=== PATIENT | male | born 1945 | race African-American/Black ===

== ENCOUNTER 2016-10-01 17:30 | Emergency (ER) | payer MEDICARE, MEDICAID ==
[~2016-10-01] VITALS: Ht 180.3 cm; Wt 59.0 kg
[~2016-10-01 17:30] MED LIST: ASPIRIN EC325 MG ORAL; DILANTIN100 MG ORAL; LACTULOSE20 GM/301 ORAL; MILK OF MA400 MG/51 ORAL; MIRTAZAPINE15 MG ORAL; NORCO1 E1 ORAL; NTG1 PATC2 TDERMAL; PROSCAR5 MG ORAL; SEROQUEL25 MG ORAL; TYLENOL EXTRA500 MG ORAL; VASOTEC10 MG ORAL
--- NOTE | 2016-10-01 18:11 | Emergency Room Report ---
History of Present Illness General Chief Complaint: Malfunctioning Gastric Tube Source: Patient Present Illness HPI 71 YOM from SNF with request for GTube replacement. Per RN, fell out "this morning." No van or other temp tube was placed to keep tract open. Per EMR , had 20F Gtube placed epigastrium October 2015. No other ED visits since. Unknown if replaced since elsewhere. Patient has no complaints. Denies abd pain, nausea/vomiting. VSS. Afebrile. Allergies: Coded Allergies: NO KNOWN ALLERGIES (Verified Allergy, Unknown, 11/10/15) Patient History Past Medical History: CVA/TIA Past Surgical History: other - Gtube placement Pertinent Family History: none Social History: Denies: alcohol use, drug use, smoking Immunizations: UTD Reviewed Nursing Documentation: PMH: Agreed, PSxH: Agreed Nursing Documentation-PMH Hx Hypertension: Yes Hx Cancer: No Hx Gastrointestinal Problems: Yes - dysphagia d/t dementia Hx Neurological Problems: Yes - CONFUSED Hx Cerebrovascular Accident: Yes Hx Dementia: Yes Hx Seizures: Yes - last attack 2 years ago Review of Systems All Other Systems: negative except mentioned in HPI Physical Exam Vital Signs Date Time Temp Pulse Resp B/P Pulse Ox O2 Delivery O2 Flow Rate FiO2 10/01/16 17:36 97.0 80 16 105/67 97 Sp02 EP Interpretation: reviewed, normal General Appearance: normal inspection, well appearing, no apparent distress, alert, GCS 15, non-toxic Head: normocephalic, atraumatic Eyes: bilateral eye EOMI, bilateral eye PERRL ENT: normal ENT inspection, hearing grossly normal, normal voice Neck: normal inspection, full range of motion, supple, no bony tend Respiratory: normal inspection, lungs clear, normal breath sounds, no respiratory distress, no retraction, no wheezing Cardiovascular #1: regular rate, rhythm, no edema Gastrointestinal: normal inspection, normal bowel sounds, non tender, soft, no guarding, no hernia, other - Epigastrium with stoma, very small opening. No surrounding sign of infection. Abd soft, NT/ND Genitourinary: no CVA tenderness Musculoskeletal: normal inspection, back normal, normal range of motion, Kraig' s Sign negative, other - Contracted left UE Neurologic: normal inspection, alert, oriented x3, responsive, pelt shearer III-XII nml as tested, motor strength/tone normal, speech normal Psychiatric: normal inspection, judgement/insight normal, mood/affect normal Skin: normal inspection, normal color, no rash Medical Decision Making Diagnostic Impression: Primary Impression: Malfunction of gastrostomy tube ER Course Gtube replaced with 14F in ED Unable to pass 20F VSS. Afebrile. Abd non-focal. DC back to SNF Other X-Ray Diagnostic Results Other X-Ray Diagnostic Results : X-Ray Ordered: Abdomen EP Interpretation: Yes Findings: other - Gastrografin seen in stomach Number of Views: 1 Last Vital Signs Date Time Temp Pulse Resp B/P Pulse Ox O2 Delivery O2 Flow Rate FiO2 10/01/16 17:36 97.0 80 16 105/67 97 Status: improved Disposition: XFER SNF Condition: Improved Patient Instructions: Gastrostomy Tube Home Guide, Adult Additional Instructions: - GTube replaced and verified with SAYRA Turner M.D. Oct 01, 2016 18:11
[2016-10-01 18:20] VITALS: BP 111/71
[2016-10-01 19:05] VITALS: BP 111/71
--- NOTE | 2016-10-02 12:01 | Diagnostic Imaging Report ---
Indication: Post gastrostomy replacement Technique: Supine view of the abdomen after injection of water-soluble contrast into gastrostomy Comparison: none Findings: Contrast opacifies the stomach. No contrast extravasation is demonstrated. The bowel gas pattern is unremarkable. Impression: Satisfactory position of gastrostomy tube
== END 2016-10-01 19:05 ==
LOC: EMR 18:06
DX: K94.23 Gastrostomy malfunction (principal); F03.90 Unspecified dementia, unspecified severity, without behavioral disturbance, psychotic disturbance, mood disturbance, and anxiety; Z86.73 Personal history of transient ischemic attack (TIA), and cerebral infarction without residual deficits; I10 Essential (primary) hypertension
CPT/HCPCS: 74000